=== PATIENT | female | born 1980 | race African-American/Black ===

== ENCOUNTER 2022-05-20 13:38 | Emergency (ER) | payer MEDICAID ==
[~2022-05-20] VITALS: Ht 172.7 cm; Wt 69.0 kg
[2022-05-20] MEDS ORDERED: amlodipine (13:42)
[2022-05-20] MEDS ORDERED: ONDANSETRON 4MG ODT PO STA (14:35)
[2022-05-20] MEDS ORDERED: KETOROLAC 30MG/ML VIAL IV STA (18:03)
[2022-05-20] MEDS ORDERED: SODIUM CHLORIDE 0.9% 1,000 ML IV ONE (18:15)
[2022-05-20] MEDS ORDERED: ALBU6.7H15 INH (18:28)
[2022-05-20] MEDS ORDERED: ACET-2708 MT (18:28)
[2022-05-20] MEDS ORDERED: AZITHROMYCIN 500 MG TABLET PO ONE (19:45)
[2022-05-20] MEDS ORDERED: AZIT250T12 MT (19:45)
[2022-05-20 21:23] VITALS: BP 118/83
== END 2022-05-20 16:56 | disposition home or self-care (01) ==
LOC: ER 13:38
DX: B34.9 Viral infection, unspecified (principal); I10 Essential (primary) hypertension
CPT/HCPCS: 71045; 96374; 99283; J1885; J7030

== ENCOUNTER 2025-04-14 11:35 | Inpatient (IN) | payer MEDICAID ==
[~2025-04-14] VITALS: Ht 162.6 cm; Wt 61.2 kg
[~2025-04-14 11:35] MED LIST: ACET-2708 MT; ALBU6.7H15 INH; AZIT250T12 MT; amlodipine
[2025-04-14 11:37] VITALS: O2SAT 100
[2025-04-14 12:40] LABS: BASOPHILS % 0.6 % (0.0-2.0); EOSINOPHILS % 0.0 % (0.0-5.0); HEMATOCRIT. 36.7 % (36.0-48.0); HEMOGLOBIN. 12.4 g/dL (12.0-16.0); LYMPHOCYTES % 16.5 % (20.0-50.0); MEAN PLATELET VOLUME 10.1 fl (7.4-10.4); MONOCYTES % 11.1 % (2.0-8.0); NEUTROPHILS % 71.8 % (40.0-76.0); PLATELET 143 x1000/uL (130-400); RED BLOOD CELL COUNT 3.53 mill/uL (4.2-5.4); RED CELL DISTRIBUTION WIDTH 19.9 % (11.6-14.6)
[2025-04-14 13:12] LABS: CREATININE 1.3 mg/dL (0.6-1.0); UREA NITROGEN BLOOD 7 mg/dL (9-23)
[2025-04-14] MEDS: ONDANSETRON HCL 4MG/2ML INJ IV ONE (13:30)
[2025-04-14] MEDS: CEFTRIAXONE 1GM/50ML 50 ML IV ONE (14:10)
[2025-04-14] MEDS: KETOROLAC 15MG/ML VIAL IV ONE (14:10)
[2025-04-14] MEDS: MORPHINE SULFATE 4 MG/ML INJ (FOR IV/IM USE) IV ONE (14:15)
[2025-04-14] MEDS: LACTATED RINGERS 1,000 ML IV SCH ×2 (14:40)
[2025-04-14 14:42] LABS: BG DEOXYHEMOGLOBIN 19.8 % (0.0-5.0)
[2025-04-14 16:33] LABS: INR 1.0
[2025-04-14 16:35] LABS: ASPARTATE AMINOTRANSFERASE 70 IU/L (<34); BILIRUBIN DIRECT 0.8 mg/dL (<=3.0); PHOSPHORUS 2.4 mg/dL (2.5-4.9)
[2025-04-14 16:36] LABS: BILIRUBIN TOTAL 1.5 mg/dL (0.1-1.0); PROTEIN TOTAL 6.8 g/dL (6.0-8.3)
[2025-04-14 16:43] LABS: INFLUENZA TYPE A Presumptive Negative (Pres. Neg.)
[2025-04-14 16:44] LABS: INFLUENZA TYPE B Presumptive Negative (Pres. Neg.)
[2025-04-14 16:45] LABS: RESPIRATORY SYNCYTIAL VIRUS Not Detected (Not Detectd)
[2025-04-14 19:30] VITALS: BP 138/90; PULSE 102; RESP 20; TEMP 36.7516
[2025-04-14 20:00] VITALS: BP 138/90; PULSE 102; RESP 20; TEMP 36.7; O2SAT 100
[2025-04-14] MEDS ORDERED: ACETAMINOPHEN 325MG TABLET PO PRN (20:30)
[2025-04-14] MEDS ORDERED: LORAZEPAM 2MG/ML UD SYRINGE IV PRN ×2 (20:30)
[2025-04-14] MEDS ORDERED: MAGNESIUM/ALUMINUM HYDROXIDE/SIMETHICONE 30ML UDC PO PRN (20:30)
[2025-04-14] MEDS ORDERED: ONDANSETRON HCL 4MG/2ML INJ IV PRN (20:30)
[2025-04-14] MEDS ORDERED: DOCUSATE SODIUM 100MG CAPSULE PO PRN (20:30)
[2025-04-14] MEDS ORDERED: IPRATROPIUM/ALBUTEROL 0.5-3(2.5)MG/3ML NEB HHN PRN (20:30)
[2025-04-14] MEDS: ACETAMINOPHEN 325MG TABLET PO PRN (21:31)
[2025-04-14] MEDS: MAGNESIUM 2 G PREMIX 50 ML IV SCH (21:32)
[2025-04-14] MEDS ORDERED: KCL 20MEQ/100ML PREMIX 100 ML IV PRN (21:45)
[2025-04-14] MEDS ORDERED: BLOOD SUGAR DIAGNOSTIC STRIP TEST PRN (21:45)
[2025-04-14] MEDS ORDERED: MAGNESIUM 2 G PREMIX 50 ML IV PRN (21:45)
[2025-04-14] MEDS ORDERED: DEXTROSE 50% WATER 50ML SYRINGE IV PRN (21:45)
[2025-04-14] MEDS ORDERED: POTASSIUM CHLORIDE 40 MEQ in SODIUM CHLORIDE 0.9% 230 ML IV PRN (21:45)
[2025-04-14] MEDS ORDERED: SODIUM CHLORIDE 0.9% 1,000 ML IV SCH (21:45)
[2025-04-14] MEDS ORDERED: DEXT 5%/0.9% NACL 1,000 ML IV SCH (21:45)
[2025-04-14] MEDS: BLOOD SUGAR DIAGNOSTIC STRIP TEST SCH (22:48)
[2025-04-14] MEDS: SODIUM PHOSPHATE 15 MMOL in DEXT 5% WATER 245 ML IV SCH (22:53)
[2025-04-14] MEDS: FOLIC ACID 1 MG, THIAMINE HCL 100 MG, MVI, ADULT NO.1 10 ML in DEXTROSE 5% WATER 1,000 ML IV ONE (23:44)
[2025-04-15] VITALS (12 sets, daily range): BP systolic 110–139; BP diastolic 77–98; PULSE 62–104; RESP 12–27; TEMP 36.5–36.8; O2SAT 98–100
[2025-04-15] MEDS: BLOOD SUGAR DIAGNOSTIC STRIP TEST SCH (00:31)
[2025-04-15 02:14] LABS: CLARITY URINE CLEAR (CLEAR); COLOR URINE ORANGE (YELLOW); GLUCOSE URINE NEGATIVE (NEGATIVE); KETONES URINE 4+ (NEGATIVE); LEUKOCYTE ESTERASE URINE TRACE (NEGATIVE); NITRITE URINE NEGATIVE (NEGATIVE); OCCULT BLOOD URINE NEGATIVE (NEGATIVE); PH URINE 6.5 (4.5-8.0); PROTEIN URINE 2+ (NEGATIVE); SPECIFIC GRAVITY URINE 1.025 (1.005-1.030); UROBILINOGEN URINE 1.0 E.U./dL (0.2-1.0)
[2025-04-15 02:31] LABS: SQUAMOUS EPITHELIAL CELL URINE 2+ /lpf (RARE/1+)
[2025-04-15 02:32] LABS: BACTERIA URINE TRACE; COARSE GRANULAR CASTS URINE 0-5 /lpf; FINE GRANULAR CASTS URINE 0-5 /lpf; RBC URINE 0-2 /hpf (0-2); TRICHOMONAS URINE 1+
[2025-04-15] MEDS: DEXT 5%/0.9% NACL 1,000 ML IV SCH (03:33)
[2025-04-15] MEDS: INSULIN LISPRO 100 UNITS/ML SUBCUT NR (05:16)
[2025-04-15 05:27] LABS: BG BASE EXCESS -0.6 mmol/L (-2.0-3.0); BG CARBOXYHEMOGLOBIN 1.1 % (0.5-1.5); BG DEOXYHEMOGLOBIN 2.5 % (0.0-5.0); BG FRACTION INSPIRED OXYGEN 21; BG HCO3 ACT 22.0 mmol/L (21.0-28.0); BG METHEMOGLOBIN 0.1 % (0.5-1.5); BG OXYGEN SATURATION 97.5 % (94.0-98.0); BG OXYHEMOGLOBIN 96.3 % (94.0-98.0); BG PCO2 29.9 mmHg (32.0-45.0); BG PH 7.484 (7.350-7.450); BG PO2 92.1 mmHg (83.0-108.0); BG SAMPLE SITE RIGHT RADIAL; BG TOTAL HEMOGLOBIN 11.8 g/dL (12.0-16.0); BG VENT MODE ROOM AIR
[2025-04-15] MEDS ORDERED: MORPHINE SULFATE 4 MG/ML INJ (FOR IV/IM USE) IV NR (05:45)
[2025-04-15] MEDS: HYDROCODONE/ACETAMINOPHEN 5/325MG TABLET PO NR (06:31)
[2025-04-15] MEDS: DEXT 5%/0.45% NACL 1000ML 1,000 ML IV SCH (06:32)
[2025-04-15] MEDS: PANTOPRAZOLE SODIUM 40 MG/VIAL IV SCH (09:00)
[2025-04-15] MEDS: MULTIVITAMINS,THER W-MINERALS TABLET PO SCH (09:01)
[2025-04-15] MEDS: FOLIC ACID 1MG TABLET PO SCH (09:01)
[2025-04-15] MEDS: AMLODIPINE 5MG TABLET PO SCH (09:01)
[2025-04-15] MEDS: THIAMINE HCL 100MG TABLET PO SCH (09:02)
[2025-04-15 12:06] LABS: HEMATOCRIT. 31.8 % (36.0-48.0); HEMOGLOBIN. 10.7 g/dL (12.0-16.0); MEAN PLATELET VOLUME 11.0 fl (7.4-10.4); PLATELET 105 x1000/uL (130-400); RED BLOOD CELL COUNT 3.14 mill/uL (4.2-5.4); RED CELL DISTRIBUTION WIDTH 19.8 % (11.6-14.6)
[2025-04-15 13:28] LABS: LYMPHOCYTES % MANUAL 38.0 % (20.0-60.0); MONOCYTES % MANUAL 15.0 % (2.0-8.0); NEUTROPHILS % MANUAL 47.0 % (45.0-75.0); PLATELET ESTIMATE SLIGHTLY DECREASED
[2025-04-15] MEDS: HYDROCODONE/ACETAMINOPHEN 5/325MG TABLET PO SCH ×2 (16:07→22:43)
[2025-04-15 17:30] LABS: CREATININE 0.9 mg/dL (0.6-1.0); TROPONIN I HIGH SENSITIVITY 32 ng/L (3.0-34)
[2025-04-15 17:31] LABS: LDL CHOLESTEROL 52 mg/dL (5-100); TRIGLYCERIDE 147 mg/dL (0-150); UREA NITROGEN BLOOD < 5 mg/dL (9-23)
[2025-04-15 17:43] LABS: PHOSPHORUS 0.6 mg/dL (2.5-4.9)
[2025-04-15] MEDS ORDERED: DEXTROSE 50% WATER 50ML SYRINGE IV PRN (18:15)
[2025-04-15] MEDS: MAGNESIUM 2 G PREMIX 50 ML IV SCH (18:22)
[2025-04-15] MEDS: ENOXAPARIN 40MG/0.4ML SYR SUBCUT SCH (20:55)
[2025-04-15] MEDS: POTASSIUM PHOSPHATE 30 MMOL in SODIUM CHLORIDE 0.9% 490 ML IV SCH (20:55)
[2025-04-15] MEDS: INSULIN LISPRO 100 UNITS/ML SUBCUT SCH (21:12)
[2025-04-15] MEDS: LIDOCAINE 5% PATCH TOP SCH (22:43)
[2025-04-16] VITALS (10 sets, daily range): BP systolic 111–145; BP diastolic 81–110; PULSE 63–91; RESP 12–20; TEMP 36.7–37.1; O2SAT 98–100
[2025-04-16] MEDS: SODIUM CHLORIDE 0.9% 1,000 ML IV SCH (08:26)
[2025-04-16 09:02] LABS: HEMATOCRIT. 32.2 % (36.0-48.0); HEMOGLOBIN. 11.0 g/dL (12.0-16.0); MEAN PLATELET VOLUME 9.7 fl (7.4-10.4); PLATELET 97 x1000/uL (130-400); RED BLOOD CELL COUNT 3.18 mill/uL (4.2-5.4); RED CELL DISTRIBUTION WIDTH 19.7 % (11.6-14.6)
[2025-04-16] MEDS: SODIUM PHOSPHATE 15 MMOL in SODIUM CHLORIDE 0.9% 245 ML IV PRN (09:08)
[2025-04-16 09:14] LABS: UREA NITROGEN BLOOD < 5 mg/dL (9-23)
[2025-04-16 09:16] LABS: PHOSPHORUS 1.8 mg/dL (2.5-4.9)
[2025-04-16 09:56] LABS: CREATININE 0.5 mg/dL (0.6-1.0)
[2025-04-16] MEDS ORDERED: POTASSIUM CHLORIDE 20MEQ TABLET SR PO NR (11:00)
[2025-04-16] MEDS: POTASSIUM CHLORIDE 20MEQ TABLET SR PO NR (11:22)
[2025-04-16] MEDS: HYDROCODONE/ACETAMINOPHEN 5/325MG TABLET PO PRN (11:24)
[2025-04-16 12:11] LABS: HCG SCREEN NEGATIVE
[2025-04-16] MEDS: POTASSIUM PHOSPHATE 30 MMOL in DEXT 5% WATER 490 ML IV SCH (12:52)
[2025-04-16 16:56] LABS: EOSINOPHILS % MANUAL 1.0 % (0.0-5.0); LYMPHOCYTES % MANUAL 48.0 % (20.0-60.0); MONOCYTES % MANUAL 12.0 % (2.0-8.0); NEUTROPHILS % MANUAL 39.0 % (45.0-75.0); PLATELET ESTIMATE DECREASED
[2025-04-16 19:03] LABS: CREATININE 0.5 mg/dL (0.6-1.0); UREA NITROGEN BLOOD < 5 mg/dL (9-23)
[2025-04-16] MEDS: GUAIFENESIN 200MG/10ML SUGAR FREE UDC PO PRN (21:07)
[2025-04-17] VITALS: BP 143/100; PULSE 68; RESP 15; TEMP 36.8; O2SAT 97
[2025-04-17 04:00] VITALS: BP 130/86; PULSE 64; RESP 13; TEMP 37.1; O2SAT 97
[2025-04-17 07:11] LABS: BASOPHILS % 0.7 % (0.0-2.0); EOSINOPHILS % 1.0 % (0.0-5.0); HEMATOCRIT. 32.2 % (36.0-48.0); HEMOGLOBIN. 11.2 g/dL (12.0-16.0); LYMPHOCYTES % 47.3 % (20.0-50.0); MEAN PLATELET VOLUME 10.0 fl (7.4-10.4); MONOCYTES % 14.9 % (2.0-8.0); NEUTROPHILS % 36.1 % (40.0-76.0); PLATELET 127 x1000/uL (130-400); RED BLOOD CELL COUNT 3.20 mill/uL (4.2-5.4); RED CELL DISTRIBUTION WIDTH 19.8 % (11.6-14.6)
[2025-04-17 07:37] LABS: UREA NITROGEN BLOOD < 5 mg/dL (9-23)
[2025-04-17 07:38] LABS: CREATININE 0.4 mg/dL (0.6-1.0)
[2025-04-17 07:40] LABS: ASPARTATE AMINOTRANSFERASE 159 IU/L (<34); BILIRUBIN DIRECT 0.6 mg/dL (<=3.0); BILIRUBIN TOTAL 1.2 mg/dL (0.1-1.0); PHOSPHORUS 2.8 mg/dL (2.5-4.9); PROTEIN TOTAL 6.5 g/dL (6.0-8.3)
[2025-04-17 08:00] VITALS: BP 133/67; PULSE 93; RESP 18; TEMP 37.1; O2SAT 99
[2025-04-17] MEDS: MAGNESIUM 2 G PREMIX 50 ML IV NR (09:12)
[2025-04-17] MEDS: POTASSIUM CHLORIDE 20MEQ TABLET SR PO NR (09:12)
[2025-04-17] MEDS: LACTATED RINGERS 1,000 ML IV SCH (09:55)
[2025-04-17 12:00] VITALS: BP 129/106; PULSE 90; RESP 19; TEMP 37; O2SAT 96
== END 2025-04-17 12:56 | disposition left against medical advice (07) | DRG 282 ==
LOC: ER 12:27 → EDBEDREQ 16:13 → ENRESERV 18:38 → 8WST 19:21 → 5EST 23:41
PROVIDERS: ADMIT Internal Medicine; ATTEND Internal Medicine
DX: K85.20 Alcohol induced acute pancreatitis without necrosis or infection (principal); E87.29 Other acidosis; E83.39 Other disorders of phosphorus metabolism; T73.0XXA Starvation, initial encounter; K86.0 Alcohol-induced chronic pancreatitis; F10.20 Alcohol dependence, uncomplicated; I10 Essential (primary) hypertension; E86.1 Hypovolemia; E87.1 Hypo-osmolality and hyponatremia; F17.200 Nicotine dependence, unspecified, uncomplicated; E83.42 Hypomagnesemia; N17.9 Acute kidney failure, unspecified; J06.9 Acute upper respiratory infection, unspecified; E87.6 Hypokalemia; R94.31 Abnormal electrocardiogram [ECG] [EKG]; X58.XXXA Exposure to other specified factors, initial encounter; Z20.822 Contact with and (suspected) exposure to COVID-19; Z71.6 Tobacco abuse counseling; Z53.29 Procedure and treatment not carried out because of patient's decision for other reasons; Z79.899 Other long term (current) drug therapy
CPT/HCPCS: 36415; 36600; 71045; 74176; 80048; 80061; 80076; 80320; 81003; 82010; 82375; 82803; 82805; 82962; 83605; 83735; 83880; 84100; 84145; 84443; 84484; 84703; 85025; 87420; 87426; 87804; 93005; 96365; 96375; 99291; A4606; J0696; J1650; J1815; J1885; J2270; J2405; J2470; J3411; J3475; J3490; J7030; J7040; J7042; J7050; J7060; J7070; J7120; G0480